=== PATIENT | female | born 1965 | race Caucasian/White ===

== ENCOUNTER 2019-08-07 07:31 | Day surgery (SDC) | payer OTHER ==
--- NOTE | 2019-08-03 13:35 | RAD REPORT ---
EXAM DESCRIPTION: RAD - Chest Pa And Lat (2 Views) - 08/03/2019 1:29 pm CLINICAL HISTORY: preop Chest pain. COMPARISON: No comparisons FINDINGS: The lungs are clear. The heart is normal in size. No displaced fractures. IMPRESSION: No acute or concerning finding suspected.
[2019-08-03 13:43] LABS: Absolute Lymphocytes (CBC) 1.5 K/uL (0.7-4.9); Basophils % 0.9 % (0-1.3); Hematocrit 37.1 % (36.0-45.0); Lymphocytes % 37.7 % (15.3-44.8); MPV 9.9 fL (7.6-11.3); RBC Red Blood Cell Count 4.09 M/uL (3.86-4.86)
[2019-08-03 13:51] LABS: Potassium 3.6 mmol/L (3.5-5.1)
[2019-08-03 13:58] LABS: Bilirubin Direct 0.2 mg/dL (0-0.2); Bilirubin Total 0.6 mg/dL (0.2-1.0); Protein, Total 6.9 g/dL (6.4-8.2)
--- NOTE | 2019-08-04 13:51 | EKG ---
Test Date: 2019-08-03 Test Time: 13:06:13 Respiratory Physician: WAGNER MEASUREMENT RESULTS: Intervals: Rate: 64 OK: 130 QRSD: 86 QT: 416 QTc: 429 [place]: P: 81 OK: 130 QRS: 83 T: 62 INTERPRETIVE STATEMENTS: Normal sinus rhythm Possible Left atrial enlargement Borderline ECG Compared to ECG 02/27/2009 09:42:30 Myocardial infarct finding no longer present Electronically Signed On 08-04-19 13:47:02 EQUALIZER OPERATOR by Montana Escalona
[2019-08-07] MEDS ORDERED: Ringers Lactate 1,000 ML IV ONE (07:50)
[2019-08-07] MEDS: CEFOXITIN/SWI 1gm 1 GM/10 ML SYR ONE ×3 (08:12→08:55)
[2019-08-07] MEDS ORDERED: propofoL 200 MG/20 ML VIAL IV ONE (08:13)
[2019-08-07] MEDS ORDERED: FENTANYL CITR 250 MCG/5 ML ONE (08:13)
[2019-08-07] MEDS ORDERED: dexAMETHasone 10 MG/ML VIAL ONE (08:13)
[2019-08-07] MEDS ORDERED: MIDAZOLAM HCL 2 MG/2 ML INJ ONE (08:13)
[2019-08-07] MEDS ORDERED: LIDOCAINE 2% MPF 5 ML VIAL ONE (08:13)
[2019-08-07] MEDS ORDERED: ROCURONIUM 50 MG/5 ML VIAL IV ONE (08:13)
[2019-08-07] MEDS ORDERED: GLYCOPYRROLATE 0.2 MG/ML SYR ONE ×2 (08:13→09:14)
[2019-08-07] MEDS ORDERED: KETOROLAC 30 MG/ML INJ ONE (09:12)
[2019-08-07] MEDS ORDERED: NEOSTIGMINE 1 MG/ML -5 ML ONE (09:15)
--- NOTE | 2019-08-07 09:16 | P.BOP ---
Preoperative diagnosis: RUQ abd pain, biliary dyskinesia, cholecystitis Postoperative diagnosis: same Primary procedure: Laparoscopic cholecystectomy Public Health Advisor: SARAH STROUD (APPLICATIONS INTERN) Estimated blood loss: <10cc Specimen: gb Findings: as above Anesthesia: General Complications: None Transferred to: Recovery Room Condition: Good
[2019-08-07] MEDS ORDERED: PROMETHAZINE INJ 25 MG/ML AMP ONE (09:19)
[2019-08-07] MEDS ORDERED: ONDANSETRON 4 MG/2 ML VIAL ONE (09:45)
[2019-08-07] MEDS: MEPERIDINE HCL 25 MG/0.5 ML ONE ×2 (10:02→10:07)
[2019-08-07] MEDS ORDERED: CODEINE 30MG/APAP 300MG TAB ONE (11:13)
[2019-08-07 11:25] VITALS: BP 109/70; TEMP 96.9; O2SAT 98
--- NOTE | 2019-08-08 00:07 | OP ---
Date of Procedure: 08/07/2019 Surgeon: Cruz Angel MD [employer]ospatial [employer]agery Intelligence Analyst: LOUISE Valenzuela. Preoperative Diagnoses: Right upper quadrant abdominal pain, biliary dyskinesia, and cholecystitis. Postoperative Diagnoses: Right upper quadrant abdominal pain, biliary dyskinesia, and cholecystitis. Procedure: Laparoscopic cholecystectomy. Estimated Blood Loss: Less than 10 mL. Specimen: Gallbladder. Anesthesia: General plus local. Indications: This is a case of a female, who comes to us with above diagnosis. Fully explained the benefits, alternatives, and risks of laparoscopic, possible open cholecystectomy, which include but a re not limited to infection, bleeding, damage to adjacent structures, anesthesia complication, choled ocholithiasis, bile leak, pancreatitis, [place], and even . She also understands this may not reliev e any symptoms. She may need more than one surgical intervention. She understood, signed a consent. Description Of Procedure: Patient was brought to the operating room, placed in supine position. Ane sthesia was done without complication. Abdominal area was prepped and draped in a sterile fashion. Marcaine 0.5% was injected for local anesthetic, followed by sharp incision of the skin in the infrau mbilical region. Incision was carried down to fascia, which was opened under direct vision. Periton eum was encountered, opened under direct vision. Vicryl #1 placed inside the fascia. Yong trocar was carefully introduced. No bleeding was obtained. I placed 3 more trocars, 5 mm each one of them, on the right upper quadrant under direct visualization. This allowed me to put a grasper in the fun dus of the gallbladder, another grasper in the infundibulum, retracted the gallbladder in the inferol ateral fashion exposing the triangle of Calot obtaining critical view safety. Cystic duct and cystic artery were clearly isolated, freed circumferentially, and a connection between those and the gallbl adder was clearly identified. I proceeded to ligate those by using at least 3 clips proximal, 1 clip distally, ligation in middle. Same was done with the cystic artery. No bile leak, no bleeding. Th e gallbladder was removed from the liver using Bovie cauterizer and removed from abdominal cavity usi ng EndoCatch through umbilical incision. The area was inspected once again. No bile leak, no bleedi ng. Clips were intact. At that moment, I proceeded to remove the trocars under direct vision. Defl ated the pneumoperitoneum. Closed the fascia with #1 Vicryl. Irrigated subcutaneous tissue, closed that with 3-0 chromic and then the skin with 3-0 chromic in a subcuticular fashion and Steri-Strip on top. Sponge count and instrument counts were correct. The patient tolerated the procedure well. Lucretia hutchinson was sent to recovery in stable condition. CEM Voice ID: [id number] Report ID: [id number]
--- NOTE | 2019-08-08 00:08 | DS ---
Date of Discharge: 08/07/2019 Diagnoses: Right upper quadrant abdominal pain, biliary dyskinesia, and cholecystitis. Procedure: Laparoscopic cholecystectomy. Disposition: Home. Activity: As tolerated. No heavy lifting. Followup: Follow up in my office in 1 week. Call for appointment at [phone]. Keep area dry for 48 hours, then may shower. Keep Steri-Strips intact. Medications: Tylenol No. 3 q.4 hours p.r.n. pain. ZANDER/ELI Voice ID: [id number] Report ID: [id number]
== END 2019-08-07 11:51 | disposition home or self-care (01) ==
LOC: OR 07:31
PROVIDERS: ATTEND Surgery
PROC: 0FT44ZZ Resection of Gallbladder, Percutaneous Endoscopic Approach (ICD-10-PCS; principal; 2019-08-07 08:30)
DX: K81.1 Chronic cholecystitis (principal); K82.8 Other specified diseases of gallbladder
CPT/HCPCS: 93005; 85025; 80048; 36415; 82150; 80076; 88304; 83690; 71046; 47562; J2704; J2550; J2250; J3010; J1100; J2175; J2710; J7120; J2405